=== PATIENT | male | born 1965 | race Caucasian/White ===

== ENCOUNTER 2019-03-13 11:32 | Outpatient (CLI) ==
[2016-06-05 15:38] VITALS: BMI 24.4
--- NOTE | 2019-03-13 11:58 | DI ---
EXAM: Left hip two-view HISTORY: Left hip pain COMPARISON: 07/17/2012 FINDINGS: Postop changes in the left acetabulum with multiple fixation screws and a surgical side pl ate. Hardware appears intact. Mild narrowing left hip joint with small osteophyte formation femoral head. Chronic ossification adjacent to the left hip may be due to old fracture or heterotopic ossif ication, unchanged. IMPERSSION: 1. Mild osteoarthritis left hip. 2. Chronic and postoperative changes as described
== END 2019-03-13 11:33 | disposition home or self-care (01) ==
LOC: RAD 11:32
PROVIDERS: ATTEND Family Medicine
DX: M25.552 Pain in left hip (principal)

== ENCOUNTER 2019-05-25 12:21 | Emergency (ER) ==
[2019-05-25 12:27] VITALS: BMI 23.8
--- NOTE | 2019-05-25 12:29 | ED.PDOC ---
General ED Provider: Dr. TANIA CACERES MD Chief Complaint: Altered Mental Status Stated Complaint: confused Time Seen by Physician: 12:20 Mode of Arrival: Ambulance Information Source: EMT Exam Limitations: No limitations Primary Care Provider: RADHA RUELAS Nursing and Triage Documentation Reviewed and Agree: Yes Does patient meet sepsis criteria?: No If yes, has appropriate treatment been initiated?: Yes System Inflammatory Response Syndrome: Not Applicable Sepsis Protocol: For patient's 13 years and over: Temp is 96.8 and below OR 101 and greater Pulse >90 BPM Resp >20/minute Acutely Altered Mental Status Are patient's symptoms suggestive of a new infection, such as: -Pneumonia -Skin, Soft Tissue -Endocarditis -UTI -Bone, Joint Infection -Implantable Device -Acute Abdominal Infection -Wound Infection -Meningitis -Blood Stream Catheter Infection -Unknown Review of Systems - Review Of Systems Constitutional: Reports: Other (confused mental state) Eyes: Reports: No symptoms Ears, Nose, Mouth, Throat: Reports: No symptoms Respiratory: Reports: No symptoms Cardiac: Reports: No symptoms GI: Reports: No symptoms : Reports: No symptoms Musculoskeletal: Reports: No symptoms Skin: Reports: No symptoms Neurological: Reports: Anxiety, Cognitive dysfunction Endocrine: Reports: No symptoms Hematologic/Lymphatic: Reports: No symptoms All Other Systems: Reviewed and Negative Past Medical History - Past Medical History Endocrine: Reports: None Cardiovascular: Reports: None Respiratory: Reports: None Hematological: Reports: None Gastrointestinal: Reports: None Genitourinary: Reports: Kidney stones Neuro/Psych: Reports: None Musculoskeletal: Reports: None Cancer: Reports: None - Surgical History General Surgical History: Reports: Orthopedic - Family History Family History: Reports: Unknown - Social History Smoking Status: Current every day smoker Hx Substance Use: No Alcohol Screening: Occasionally - Immunizations Tetanus Shot up to Date: (unknown) Physical Exam - Physical Exam Appearance: Well-appearing, No pain distress, Well-nourished Ill-appearing: Moderate Pain Distress: None Eyes: Right pupil size (lot of eye movement), Left pupil size (lot og eye movement) ENT: Ears normal, Nose normal, Oropharynx normal Neck: Supple Respiratory: Airway patent, Breath sounds clear, Breath sounds equal, Respirations nonlabored Cardiovascular: RRR, Pulses normal, No rub, No murmur GI/: Soft, Nontender, No masses, Bowel sounds normal, No Organomegaly Musculoskeletal: Normal strength, ROM intact, No edema, No calf tenderness Skin: Warm, Dry, Normal color Neurological: Sensation intact (confused speach), Motor intact, Reflexes intact , Cranial nerves intact, Alert, Oriented Psychiatric: Affect appropriate, Mood appropriate Critical Care Note - Critical Care Note Total Time (mins): 0 Course - Course Hematology/Chemistry: 05/25/19 12:40 05/26/19 05:30 Orders, Labs, Meds: Lab Review 05/25/19 05/25/19 05/25/19 12:40 12:58 12:58 WBC 9.35 RBC 4.52 L Hgb 14.0 Hct 41.8 L MCV 92.5 MCH 31.0 MCHC 33.5 RDW Coeff of Yoon 14.2 Plt Count 339 Immature Gran % (Auto) 0.4 Neut % (Auto) 59.3 Lymph % (Auto) 31.6 [place] % (Auto) 7.2 Eos % (Auto) 0.3 Baso % (Auto) 1.2 Immature Gran # (Auto) 0.0 Neut # (Auto) 5.6 Lymph # (Auto) 3.0 [place] # (Auto) 0.7 Eos # (Auto) 0.0 Baso # (Auto) 0.1 Sodium 143.1 Potassium 3.78 Chloride 107.2 H Carbon Dioxide 24.4 Anion Gap 15.28 BUN 11.5 Creatinine 1.08 Estimated GFR (MDRD) 71.00 BUN/Creatinine Ratio 10.64 Glucose 90.5 Calcium 11.13 H Total Bilirubin 0.42 AST 18.9 ALT 16.0 Alkaline Phosphatase 77.9 Ammonia Total Protein 7.11 Albumin 4.31 Globulin 2.80 Albumin/Globulin Ratio 1.53 Urine Color Urine Clarity Urine pH Ur Specific [place] Urine Protein Urine Glucose (UA) Urine Ketones Urine Blood Urine Nitrite Urine Bilirubin Urine Urobilinogen Ur Leukocyte Esterase Urine Microscopic WBC Ur Squamous Epith Cells Urine Opiates Screen Ur Oxycodone Screen Urine Methadone Screen Ur Propoxyphene Screen Acetaminophen < 10.0 L Ur Barbiturates Screen U Tricyclic Antidepress Ur Phencyclidine Scrn Ur Amphetamine Screen U Methamphetamines Scrn U Benzodiazepines Scrn Urine Cocaine Screen U Cannabinoids Screen 05/25/19 05/25/19 05/26/19 23:00 23:00 05:30 WBC RBC Hgb Hct MCV MCH MCHC RDW Coeff of Yoon Plt Count Immature Gran % (Auto) Neut % (Auto) Lymph % (Auto) [place] % (Auto) Eos % (Auto) Baso % (Auto) Immature Gran # (Auto) Neut # (Auto) Lymph # (Auto) [place] # (Auto) Eos # (Auto) Baso # (Auto) Sodium 143.0 Potassium 3.73 Chloride 112.4 H Carbon Dioxide 21.3 L Anion Gap 13.03 BUN 10.6 Creatinine 0.84 Estimated GFR (MDRD) 95.00 BUN/Creatinine Ratio 12.61 Glucose 97.2 Calcium 11.31 H Total Bilirubin 0.70 AST 18.9 ALT 14.8 Alkaline Phosphatase 89.2 Ammonia Total Protein 6.68 Albumin 4.00 Globulin 2.68 Albumin/Globulin Ratio 1.49 Urine Color Yellow Urine Clarity Clear Urine pH 6.0 Ur Specific [place] 1.010 Urine Protein Negative Urine Glucose (UA) Negative Urine Ketones Negative Urine Blood Negative Urine Nitrite Negative Urine Bilirubin Negative Urine Urobilinogen 0.2 Ur Leukocyte Esterase Trace Urine Microscopic WBC 5-10 Ur Squamous Epith Cells Not present Urine Opiates Screen Positive Ur Oxycodone Screen Negative Urine Methadone Screen Negative Ur Propoxyphene Screen Negative Acetaminophen Ur Barbiturates Screen Negative U Tricyclic Antidepress Negative Ur Phencyclidine Scrn Negative Ur Amphetamine Screen Negative U Methamphetamines Scrn Negative U Benzodiazepines Scrn Positive Urine Cocaine Screen Negative U Cannabinoids Screen Negative 05/26/19 05:30 WBC RBC Hgb Hct MCV MCH MCHC RDW Coeff of Yoon Plt Count Immature Gran % (Auto) Neut % (Auto) Lymph % (Auto) [place] % (Auto) Eos % (Auto) Baso % (Auto) Immature Gran # (Auto) Neut # (Auto) Lymph # (Auto) [place] # (Auto) Eos # (Auto) Baso # (Auto) Sodium Potassium Chloride Carbon Dioxide Anion Gap BUN Creatinine Estimated GFR (MDRD) BUN/Creatinine Ratio Glucose Calcium Total Bilirubin AST ALT Alkaline Phosphatase Ammonia 9.7 Total Protein Albumin Globulin Albumin/Globulin Ratio Urine Color Urine Clarity Urine pH Ur Specific [place] Urine Protein Urine Glucose (UA) Urine Ketones Urine Blood Urine Nitrite Urine Bilirubin Urine Urobilinogen Ur Leukocyte Esterase Urine Microscopic WBC Ur Squamous Epith Cells Urine Opiates Screen Ur Oxycodone Screen Urine Methadone Screen Ur Propoxyphene Screen Acetaminophen Ur Barbiturates Screen U Tricyclic Antidepress Ur Phencyclidine Scrn Ur Amphetamine Screen U Methamphetamines Scrn U Benzodiazepines Scrn Urine Cocaine Screen U Cannabinoids Screen Orders Category Date Time Status IV [ED IV/MEDIPORT/POWERPORT] .ONCE EMERGENCY 05/25/19 12:41 Active Restrain [ED RESTRAINTS] .ONCE EMERGENCY 05/25/19 13:25 Active Restrain [ED RESTRAINTS] .ONCE EMERGENCY 05/25/19 18:04 Active AMMONIA Timed LAB 05/26/19 05:30 Completed CBC W/ AUTO DIFF Stat LAB 05/25/19 12:40 Completed CMP [COMPREHENSIVE METABOLIC PANEL] Stat LAB 05/25/19 12:58 Completed CMP [COMPREHENSIVE METABOLIC PANEL] Timed LAB 05/26/19 05:30 Completed TYLENOL LEVEL [ACETAMINOPHEN] Stat LAB 05/25/19 12:58 Completed URINALYSIS C & S IF INDICATED Stat LAB 05/25/19 23:00 Completed URINE CULTURE Stat LAB 05/25/19 23:11 Results URINE DRUG SCREEN (RAPID FOR ED) [DRUG SCREEN, URINE, LAB 05/25/19 23:00 Completed RAPID] Stat 0.9 % Sodium Chloride [Saline Flush] MEDS 05/25/19 12:41 Active 1 syr IVF PRN PRN Haloperidol Lactate [Haldol] MEDS 05/25/19 13:02 Discontinued 5 mg IM ONCE STA Lorazepam [Ativan] MEDS 05/25/19 14:20 Discontinued 1 mg IVP ONCE STA Lorazepam [Ativan] MEDS 05/25/19 15:50 Discontinued 1 mg IVP ONCE STA Lorazepam [Ativan] MEDS 05/25/19 12:28 Discontinued 2 mg IVP ONCE STA Naloxone HCl [Narcan] MEDS 05/25/19 12:28 Discontinued 0.4 mg IVP ONCE STA Naloxone HCl [Narcan] MEDS 05/25/19 13:48 Discontinued 0.4 mg IVP ONCE STA Sodium Chloride 0.9% [Sodium Chloride] 1,000 ml MEDS 05/25/19 12:[address] HEAD W/O CONTRAST Stat RADS 05/25/19 17:57 Completed Medications Generic Name Dose Route Start Last Admin Trade Name Freq PRN Reason Stop Dose Admin Sodium Chloride 1 syr 05/25/19 12:41 Saline Flush IVF PRN PRN To flush IV Discontinued Medications Generic Name Dose Route Start Last Admin Trade Name Freq PRN Reason Stop Dose Admin Haloperidol Lactate 5 mg 05/25/19 13:02 05/25/19 13:08 Haldol IM 05/25/19 13:03 5 mg ONCE STA Administration Sodium Chloride 1,000 mls @ 1,000 mls/hr 05/25/19 12:41 05/25/19 12:51 Sodium Chloride IV 05/25/19 13:40 1,000 mls/hr BOLUS STA Administration Lorazepam 2 mg 05/25/19 12:28 05/25/19 12:35 Ativan IVP 05/25/19 12:29 2 mg ONCE STA Administration Lorazepam 1 mg 05/25/19 14:20 05/25/19 15:52 Ativan IVP 05/25/19 14:21 1 mg ONCE STA Administration Lorazepam 1 mg 05/25/19 15:50 Ativan IVP 05/25/19 15:51 ONCE STA Naloxone HCl 0.4 mg 05/25/19 12:28 05/25/19 12:35 Narcan IVP 05/25/19 12:29 0.4 mg ONCE STA Administration Naloxone HCl 0.4 mg 05/25/19 13:48 05/25/19 14:01 Narcan IVP 05/25/19 13:49 0.4 mg ONCE STA Administration Vital Signs: Temp Pulse Resp BP Pulse Ox 05/26/19 04:09 79 18 155/99 H 95 05/25/19 19:36 79 163/111 H 99 05/25/19 19:07 66 149/84 H 96 05/25/19 16:01 101 H 143/104 H 100 05/25/19 15:20 109 H 125/101 H 97 05/25/19 14:17 106 H 20 143/91 H 95 05/25/19 13:15 116 H 20 131/100 H 97 05/25/19 12:22 99.2 F 104 H 22 131/116 H 97 Departure - Departure Time of Disposition: 07:45 Disposition: TRANSFER SNF Discharge Problem: Altered mental status, unspecified Qualifiers: Altered mental status type: disorientation Qualified Code(s): R41.0 - Disorientation, unspecified Condition: Fair Pt referred to PMD for follow-up: Yes IPMP verified?: No Allergies/Adverse Reactions: Allergies No Known Allergies Allergy (Verified 05/25/19 12:32) Home Medications: Ambulatory Orders 1 [Unobtainable] 05/25/19 Transfer Form Completed: Yes Disposition Discussed With: Patient, Family
[2019-05-25] MEDS: NARCAN IVP STA ×2 (12:35→14:01)
[2019-05-25] MEDS: ATIVAN IVP STA ×2 (12:35→15:52)
[2019-05-25] MEDS: SODIUM CHLORIDE 1,000 ML IV STA (12:51)
[2019-05-25] MEDS ORDERED: HALDOL IVP STA (12:53)
[2019-05-25] MEDS: HALDOL IM STA (13:08)
[2019-05-25] MEDS ORDERED: ATIVAN IVP STA (15:50)
--- NOTE | 2019-05-25 18:52 | CT ---
EXAM: CT head without contrast. HISTORY: Mental status changes. PROCEDURE: Contiguous axial CT images of the head without contrast with coronal and sagittal reforma ts. FINDINGS: The ventricles and basal cisterns are normal in size and configuration. No evidence of mas s or midline shift. No intracranial hemorrhage or evidence of large vessel infarct. No extra-axial fluid collection. There is mucosal thickening in the sphenoid sinus. The mastoid air cells are norm al in appearance. Impression: Negative CT of the head. Sphenoid sinusitis.
[2019-05-26 04:10] VITALS: BP 155/99; TEMP 99.2
== END 2019-05-26 08:11 | disposition short-term general hospital (02) ==
LOC: ED 12:21
DX: R41.0 Disorientation, unspecified (principal); F17.210 Nicotine dependence, cigarettes, uncomplicated
CPT/HCPCS: 36415; 80053; 80306; 80307; 81001; 82140; 85025; 87086; 96361; 96372; 96374; 96375; 96376; 99285